=== PATIENT | male | born 1945 | race Caucasian/White ===

== ENCOUNTER → 2016-06-20 | Outpatient (CLI) | payer OTHER ==
[~2016-06-20] MED LIST: ASPI81TA28 PO; CALC500C70 PO; CYAN100020 PO; FROV1TAB PO; LUTE20TA PO; LUTE6TAB PO; MELO15TA10 PO; MISCCAP80 PO; MOBIC PO; MULTTAB58 PO; OMEG10007 PO; SUMA50TA15 PO
[2016-06-20 12:49] LABS: BASO % 0.9 %; BASO ABS # 0.04 K/uL (0-0.2); COMPLETE YES; EOS % 4.1 %; HEMATOCRIT 42.3 % (42-52); IG% 0.2 %; LYMPH ABS # 0.69 K/uL (1.2-3.4); MEAN CELL VOLUME 91.4 fL (80-100); MEAN CORPUSCULAR HEMOGLOBIN 31.5 pg (25-34); MEAN CORPUSCULAR HGB CONC 34.5 g/dl (32-36); MEAN PLATELET VOLUME 12.6 fL (7.4-10.4); MONO % 11.5 %; NEUT % 68.3 %; PLATELET COUNT 229 K/uL (130-400); RED BLOOD COUNT 4.63 M/uL (4.7-6.1); WHITE BLOOD COUNT 4.61 K/uL (4.8-10.8)
[2016-06-20 13:07] LABS: BLOOD UREA NITROGEN 18 mg/dl (7-18); BUN/CREATININE RATIO 14.7 (10-20); CALCIUM 8.8 mg/dl (8.5-10.1); CARBON DIOXIDE 28 mmol/L (21-32); CHLORIDE 102 mmol/L (98-107); GLUCOSE 89 mg/dl (70-99); POTASSIUM 4.3 mmol/L (3.5-5.1); SODIUM 139 mmol/L (136-145)
[2016-06-20 13:10] LABS: CHOLESTEROL 164 mg/dl (0-200); CHOLESTEROL/HDL RATIO 3.8; HDL CHOLESTEROL 43 mg/dl; LDL CHOLESTEROL CALCULATED 97 mg/dl; TRIGLYCERIDES 119 mg/dl (0-150); VERY LOW DENSITY LIPOPROT CALC 24 mg/dl
== END | disposition home or self-care (01) ==
LOC: C.LABPBG 09:26
PROVIDERS: ATTEND Internal Medicine Geriatric Medicine
DX: Z00.00 Encounter for general adult medical examination without abnormal findings (principal); M19.90 Unspecified osteoarthritis, unspecified site; G43.109 Migraine with aura, not intractable, without status migrainosus; S12.100A Unspecified displaced fracture of second cervical vertebra, initial encounter for closed fracture; M48.02 Spinal stenosis, cervical region; X58.XXXA Exposure to other specified factors, initial encounter

== ENCOUNTER → 2016-12-12 | Day surgery (SDC) | payer OTHER ==
[2016-11-23 12:47] VITALS: BMI 22.0
[~2016-12-12] VITALS: Ht 180.3 cm; Wt 72.7 kg
[~2016-12-12] MED LIST changes: -CALC500C70 PO; -CYAN100020 PO; -FROV1TAB PO; +LIDOCAINE HCL 2% 2 ML VIAL (20MG/ML) ONE; -LUTE20TA PO; -MOBIC PO; -OMEG10007 PO; +PROPOFOL IV EMULSION 10 MG/ML 20 ML VIAL IV ONE; +SODIUM CHLORIDE 0.9% 500ML 500 ML IV ONE
[2016-12-12 09:54] VITALS: Ht 180.3 cm; Wt 72.7 kg
--- NOTE | 2016-12-12 10:06 | Endo History and Physical ---
History & Physical Date of Service: Dec 12, 2016. Chief Complaint: Screening Referring Physician: Dr. Zain Jurado History of Present Illness 71 yo CM who presents for screening colonoscopy. Past Surgical History Hx Cardiac Surgery: No Hx Internal Defibrillator: No Hx Pacemaker: No Hx Abdominal Surgery: Yes (LT/RT INGUINAL HERNIA REPAIR) Hx of Implantable Prosthesis: No Hx Post-Op Nausea and Vomiting: No Hx Cancer Surgery: No Hx Thoracic Surgery: No Hx Orthopedic: Yes (LT/RT TKA, TRIGGER FINGER, LT/RT KNEE SURGERY) Hx Urinary Tract Surgery: No Family History IBD Social History Smoking Status: Never Smoker Hx Substance Use: No Hx Alcohol Use: Yes (OCCASIONAL BEER) Allergies Coded Allergies: Acetaminophen (Verified Allergy, Unknown, Vomiting, 12/12/16) Hydrocodone (Verified Allergy, Unknown, Vomiting, 12/12/16) Monosodium Glutamate (Verified Allergy, Unknown, MIGRAINE HEADACHES, ) Current Medications Reported Home Medications Medications Dose Route/Sig Max Daily Dose Days Date Category Imitrex (Sumatriptan Succinate) 50 Mg Tab 50 Mg PO UD PRN 11/23/16 Reported Lutein W/Zeaxanthin (Lutein-Zeaxanthin) 1 Tab Tab 1 Tab PO QAM 11/23/16 Reported Mobic (Meloxicam) 15 Mg Tab 15 Mg PO QAM 11/23/16 Reported Probiotic (Probiotic Product) 1 Cap Cap 1 Cap PO QAM 09/07/15 Reported Multivitamin (Multiple Vitamin) 1 Tab Tab 1 Tab PO QAM 09/07/15 Reported Aspirin Ec (Aspirin) 81 Mg Tab 81 Mg PO QAM 09/07/15 Reported Vital Signs Weight (Kilograms): 72.73 Height (Feet): 5 Height (Inches): 11 Physical Exam General Appearance: WD/WN, no apparent distress Respiratory/Chest: Auscultation: breath sounds normal Cardiovascular: Heart Auscultation: RRR Abdomen: Bowel Sounds: normal Inspection & Palpation: soft, non-distended, no tenderness, guarding & rebound Assessment and Plan Assessment: 71 yo CM who presents for screening colonoscopy. Plan: Proceed with colonoscopy.
--- NOTE | 2016-12-12 10:54 | GI REPORT ---
Procedure Date: 12/12/2016 10:27 AM Procedure: Colonoscopy Indications: Screening for colorectal malignant neoplasm Medicines: Monitored Anesthesia Care Complications: No immediate complications. Estimated Blood Loss: Estimated blood loss: none. Procedure: Pre-Anesthesia Assessment: - Prior to the procedure, a History and Physical was performed, and patient medications and allergies were reviewed. The patient's tolerance of previous anesthesia was also reviewed. The risks and benefits of the procedure and the sedation options and risks were discussed with the patient. All questions were answered, and informed consent was obtained. Prior Anticoagulants: The patient has taken aspirin, last dose was 2 days prior to procedure. ASA Grade Assessment: II - A patient with mild systemic disease. After reviewing the risks and benefits, the patient was deemed in satisfactory condition to undergo the procedure. After I obtained informed consent, the scope was passed under direct vision. Throughout the procedure, the patient's blood pressure, pulse, and oxygen saturations were monitored continuously. The scope was introduced through the anus and advanced to the terminal ileum. The colonoscopy was performed without difficulty. The patient tolerated the procedure well. The quality of the bowel preparation was good. The terminal ileum, ileocecal valve, appendiceal orifice, and rectum were photographed. Findings: Multiple small-mouthed diverticula were found in the sigmoid colon. Non-bleeding internal hemorrhoids were found during retroflexion. The hemorrhoids were small. Impression: - Diverticulosis in the sigmoid colon. - Non-bleeding internal hemorrhoids. - No specimens collected. Recommendation: - Resume previous diet. - Continue present medications. - Return to primary care physician as previously scheduled. - No repeat colonoscopy due to age and the absence of advanced adenomas. Oliver Parsons DO 12/12/2016 10:54:01 AM This report has been signed electronically. Note Initiated On: 12/12/2016 10:27 AM I attest to the content of the Intraoperative Record and orders documented therein, exceptions below
--- NOTE | 2016-12-12 10:55 | Discharge Instructions ---
Endoscopy Patient Instructions Date / Procedure(s) Performed Dec 12, 2016. Colonoscopy Allergy Information Coded Allergies: Acetaminophen (Verified Allergy, Unknown, Vomiting, 12/12/16) Hydrocodone (Verified Allergy, Unknown, Vomiting, 12/12/16) Monosodium Glutamate (Verified Allergy, Unknown, MIGRAINE HEADACHES, ) Discharge Date / Findings Dec 12, 2016. Diverticulosis Internal hemorrhoids Medication Instructions OK to resume all medications today as prescribed Reported Home Medications Medications Dose Route/Sig Max Daily Dose Days Date Category Imitrex (Sumatriptan Succinate) 50 Mg Tab 50 Mg PO UD PRN 11/23/16 Reported Lutein W/Zeaxanthin (Lutein-Zeaxanthin) 1 Tab Tab 1 Tab PO QAM 11/23/16 Reported Mobic (Meloxicam) 15 Mg Tab 15 Mg PO QAM 11/23/16 Reported Probiotic (Probiotic Product) 1 Cap Cap 1 Cap PO QAM 09/07/15 Reported Multivitamin (Multiple Vitamin) 1 Tab Tab 1 Tab PO QAM 09/07/15 Reported Aspirin Ec (Aspirin) 81 Mg Tab 81 Mg PO QAM 09/07/15 Reported Provider Instructions Activity Restrictions - No exercising or heavy lifting for 24 hours. - Do not drink alcohol the day of the procedure. - Do not drive a car or operate machinery until the day after the procedure. - Do not make any important decisions or sign important papers in 24 hours after the procedure. Following Day: - Return to full activity which may include returning to work/school. Diet Start your diet with liquids and light foods (jello, soup, juice, toast). Then eat your usual diet if not nauseated. Treatment For Common After Affects For mild abdominal pain, bloating, or excessive gas: - Rest - Eat lightly - Lie on right side Follow-Up Information Follow-up with Dr. Zain Jurado as scheduled Anesthesia Information What You Should Know You have had a procedure that required some medicine to reduce anxiety and discomfort. This treatment is called moderate sedation. After receiving the treatment, you may be sleepy, but you will be able to breathe on your own. The effects of the treatment may last for several hours. Follow these instructions along with Activity/Diet recommendations noted above: * Do NOT do anything where dizziness or clumsiness would be dangerous. * Rest quietly at home today, then you can be up and about tomorrow. * Have a responsible person stay with you the rest of today. * You may have had an I.V. today. If so, you may take the dressing off later today. Recommendations Call your doctor if: * Trouble breathing * Continuous vomiting for more than 24 hours * Temperature above 101 degrees * Severe abdominal pain or bloating * Pain not relieved by pain medicine ordered * There is increased drainage or redness from any incision * A large amount of rectal bleeding greater than 2-3 tablespoons. (If you had a polyp/s removed or have hemorrhoids, a small amount of blood - from the rectum is to be expected.) * You have any unanswered questions or concerns. IN THE EVENT OF A SERIOUS EMERGENCY, GO TO THE NEAREST EMERGENCY ROOM Your discharge instructions were prepared by provider Oliver Parsons. Patient Instructions Signature Page Ezra Wells Patient (or Guardian) Signature/Date: I have read and understand the instructions given to me by my caregivers. Caregiver/RN/Doctor Signature/Date: The above-named patient and/or guardian has received patient instructions on this date. + Original Patient Signature Page (only) stays with chart. Please make copy for patient.
--- NOTE | 2016-12-12 10:57 | Anesthesiology Progress Note ---
Anesthesia Post Op Note Date & Time Dec 12, 2016 at 10:57 Vital Signs Pain Intensity: 0 Vital Signs Past 12 Hours Date Time Temp Pulse Resp B/P (MAP) Pulse Ox O2 Delivery O2 Flow Rate FiO2 12/12/16 10:53 72 16 125/82 (96) 98 Room Air 12/12/16 10:45 57 16 107/61 (76) 100 Room Air 12/12/16 10:07 36.5 50 18 154/84 (107) 99 Room Air Notes Mental Status: alert / awake / arousable, participated in evaluation Pt Amnestic to Procedure: Yes Nausea / Vomiting: adequately controlled Pain: adequately controlled Airway Patency, RR, SpO2: stable & adequate BP & HR: stable & adequate Hydration State: stable & adequate Anesthetic Complications: no major complications apparent
[2016-12-12 11:05] VITALS: BP 131/86; PULSE 62; O2SAT 98
== END | disposition home or self-care (01) ==
LOC: C.GI 09:42
PROVIDERS: ATTEND Internal Medicine
DX: Z12.11 Encounter for screening for malignant neoplasm of colon (principal); K57.30 Diverticulosis of large intestine without perforation or abscess without bleeding; K64.8 Other hemorrhoids; Z96.653 Presence of artificial knee joint, bilateral

== ENCOUNTER → 2017-06-26 | Outpatient (CLI) | payer OTHER ==
[~2017-06-26] MED LIST changes: -LIDOCAINE HCL 2% 2 ML VIAL (20MG/ML) ONE; -PROPOFOL IV EMULSION 10 MG/ML 20 ML VIAL IV ONE; -SODIUM CHLORIDE 0.9% 500ML 500 ML IV ONE
[2017-06-26 17:48] LABS: BASO % 0.1 %; BASO ABS # 0.01 K/uL (0-0.2); HEMATOCRIT 41.7 % (42-52); HEMOGLOBIN 14.1 g/dL (14.0-18.0); IG# 0.02 K/uL (0.00-0.02); MEAN CELL VOLUME 92.5 fL (80-100); MEAN CORPUSCULAR HEMOGLOBIN 31.3 pg (25-34); MEAN CORPUSCULAR HGB CONC 33.8 g/dl (32-36); MEAN PLATELET VOLUME 12.2 fL (7.4-10.4); MONO % 8.4 %; MONO ABS # 0.84 K/uL (0.11-0.59); NEUT % 83.3 %; NEUT ABS # 8.32 K/uL (1.4-6.5); PLATELET COUNT 171 K/uL (130-400); RED CELL DISTRIBUTION WIDTH CV 13.8 % (11.5-14.5); RED CELL DISTRIBUTION WIDTH SD 46.8 fL (36.4-46.3); WHITE BLOOD COUNT 9.99 K/uL (4.8-10.8)
[2017-06-26 18:44] LABS: ALBUMIN 3.2 gm/dl (3.4-5.0); BLOOD UREA NITROGEN 15 mg/dl (7-18); CARBON DIOXIDE 27 mmol/L (21-32); CREATININE 1.12 mg/dl (0.60-1.40); GLUCOSE 115 mg/dl (70-99); POTASSIUM 4.3 mmol/L (3.5-5.1); SODIUM 129 mmol/L (136-145)
[2017-06-26 18:48] LABS: ALKALINE PHOSPHATASE 75 U/L (45-117); ALT/SGPT 24 U/L (12-78); AST/SGOT 17 U/L (15-37); TOTAL PROTEIN 6.8 gm/dl (6.4-8.2)
== END | disposition home or self-care (01) ==
LOC: C.LABPBG 12:25
PROVIDERS: ATTEND Internal Medicine Geriatric Medicine
DX: G47.00 Insomnia, unspecified (principal); R05 Cough; R04.0 Epistaxis; J40 Bronchitis, not specified as acute or chronic